=== PATIENT | male | born 1995 | race Caucasian/White ===

== ENCOUNTER → 2023-08-05 | Outpatient (CLI) | payer OTHER ==
--- NOTE | 2023-08-12 08:38 | CT ---
EXAMINATION TYPE: CT sinus wo con DATE OF EXAM: 08/05/2023 COMPARISON: None HISTORY: chronic sinusitis CT DLP: [id number] mGycm. Automated Exposure Control for Dose Reduction was Utilized. TECHNIQUE: CT scan of the sinuses is performed without contrast, axial images are obtained, coronal r eformatted images are also reviewed. FINDINGS: There is moderate to severe opacification of the ethmoid air cells and frontal sinus with o cclusion of the frontoethmoidal recess. There is moderate mucosal thickening involving the maxillary sinuses with occlusion of the right maxi llary ostium. Left ostomy appears patent correlate for prior surgical intervention. There is a slight nasal septal deviation. Moderate mucosal thickening involving the sphenoid sinus. Visualized portion of mastoid air cells show no abnormal opacification. The globes are intact bilate rally. IMPRESSION: 1. Moderate to severe chronic pansinusitis.
== END | disposition home or self-care (01) ==
LOC: RADCTMAIN 14:02
PROVIDERS: ATTEND Otolaryngology
DX: J32.4 Chronic pansinusitis (principal); J32.0 Chronic maxillary sinusitis
CPT/HCPCS: 70486